=== PATIENT | female | born 1965 | race American Indian/Alaskan Native ===

== ENCOUNTER 2020-12-12 05:50 | Day surgery (SDC) | payer BC ==
[~2020-12-12] VITALS: Ht 157.5 cm; Wt 71.4 kg
[~2020-12-12 05:50] MED LIST: ASPIRIN EC81 MG PO; CALCIUM 600 +1 EAC6 PO; FENOFIBRATE40 MG PO; MULTIVITAMINS1 EAC6 PO; OMEGA 3 1,0001 EACH PO; PREMARIN0.625 MG PO
[2020-12-12] MEDS ORDERED: CELECOXIB200 MG PO (08:38)
[2020-12-12] MEDS ORDERED: HYDROCODON-ACE1 EA11 PO (08:39)
--- NOTE | 2020-12-12 09:30 | NUR ---
12/12/20 0930 Marzena Loja 0872 PT ARRIVED IN PACU SLEEPY WITH NO C/O'S. R HAND ELEVATED ON PILLOWS AND ICE PLACED. 0900 UP TO BATHROOM WITH ONE PERSON ASSIST. VOIDED. BACK AT BEDSIDE GETTING DRESSED. 0920 SLING PLACED ON PT AND DC INSTRUCTIONS GIVEN. LEFT VIA W/C. INSTRUCTIONS GIVEN TO SPOUSE AT CAR.
--- NOTE | 2020-12-14 07:10 | OR ---
[facility] [address] [place], [place] [address] Signed DATE OF OPERATION: 12/12/2020 SURGEON: Shaista Garza MD PREOPERATIVE DIAGNOSIS: Carpometacarpal arthrosis, right thumb. POSTOPERATIVE DIAGNOSIS: Carpometacarpal arthrosis, right thumb. PROCEDURE PERFORMED: Right carpometacarpal reconstruction. ASSISTANT PUBLIC DEFENDER: Viji Jansen PA-C. Viji was present and critical for all portions of procedure. ANESTHESIA: General. BLOOD LOSS: None. TOURNIQUET TIME: 45 minutes. IMPLANTS: Arthrex CMC kit with interference screw. BRIEF HISTORY: Rajendra is a 55-year-old female with progressive worsening of thumb arthritis and instability. Risks and benefits of operative treatment were discussed with her and she elected to proceed after failure of nonoperative treatment. DESCRIPTION OF PROCEDURE: Once consent was obtained, she was taken to the operating room. After adequate anesthesia, she was placed on operating room table. All downside pressure points were well padded. The arm was placed in well-padded proximal arm tourniquet and the arm prepped and draped in a standard sterile fashion. The arm was exsanguinated using Esmarch bandage. Tourniquet inflated to 200 mmHg. A curvilinear incision was centered Electronically Signed By: SHAISTA GARZA MD 12/14/20 0710 PATIENT NAME: RAJENDRA AVILA OPERATIVE REPORT DATE OF : 63 REPORT #: [id number] PHYSICIAN: SHAISTA GARZA MD PCP: UNASSIGNED DOCTOR REPORT IS CONFIDENTIAL AND NOT TO BE RELEASED WITHOUT AUTHORIZATION [facility] [address], [place] [address] Signed over the CMC joint and extended proximally and medially to the FCR. This carried through skin and subcutaneous tissue. The volar capsule was then elevated off the trapezium and trapezoid and the CMC joint was identified. The FCR was then carefully dissected, retracted and protected. The trapezium was then removed in a piecemeal fashion. All bony fragments were removed. The base of the first metacarpal was then easily reducible against the second. The FCR was then harvested from a separate stab incision into the old wound approximately 5 cm proximally. This was delivered into the wound and made cone shape. The guide pin for the Arthrex set was then placed obliquely from the volar radial aspect of the metacarpal to the dorsal ulnar aspect. This was overdrilled using the 4 mm drill. The [place]uran fingertrap was then used to bring the tendon through the drill hole and bring it out the volar aspect of the drill hole. Once this was accomplished using the push-pull method, the 1st metacarpal settled against the base of the 2nd metacarpal. Once it was tightly adhered, the screw was placed in the bone tunnel and the tendon was folded over itself and sutured to the base of the FCR with #2-0 FiberWire. Silver sutures were placed. Once this was accomplished, the remainder of the tendon was folded and sutured into an anchovy and placed in the defect. The wound was copiously irrigated with normal saline. The volar capsule was closed using 2-0 Quill. The subcutaneous tissue with 3-0 Monocryl and Steri-Strips were applied. The proximal wound was also sutured with 3-0 Monocryl and Steri-Strips. The wounds were dressed with Allevyn dressing, sterile gauze and a thumb spica splint. She tolerated the procedure well. All sponge, needle, and instrument counts were correct. Shaista Garza MD BA/MODL /[id number] Copies: ~ Electronically Signed By: SHAISTA GARZA MD 12/14/20 0710 PATIENT NAME: RAJENDRA AVILA OPERATIVE REPORT DATE OF : 63 REPORT #: [id number] PHYSICIAN: SHAISTA GARZA MD PCP: UNASSIGNED DOCTOR REPORT IS CONFIDENTIAL AND NOT TO BE RELEASED WITHOUT AUTHORIZATION
== END 2020-12-12 09:20 | disposition home or self-care (01) ==
LOC: DS 05:50
PROVIDERS: ATTEND Specialist
PROC: 0RQS0ZZ Repair Right Carpometacarpal Joint, Open Approach (ICD-10-PCS; principal; 2020-12-12 08:15)
DX: M18.31 Unilateral post-traumatic osteoarthritis of first carpometacarpal joint, right hand (principal); S63.041A Subluxation of carpometacarpal joint of right thumb, initial encounter; W22.8XXA Striking against or struck by other objects, initial encounter; G89.18 Other acute postprocedural pain; Z87.891 Personal history of nicotine dependence
CPT/HCPCS: 01830; 64417; 76942; C1713; J0690; J1100; J2001; J2250; J2405; J2704; J2795; J7121